=== PATIENT | female | born 2000 | race Caucasian/White ===

== ENCOUNTER 2023-06-07 17:16 | Emergency (ER) | payer OTHER, SELFPAY ==
[2023-06-07 17:18] VITALS: BP 137/71; PULSE 90; RESP 18; TEMP 36.3; O2SAT 98; BMI 26.4
--- NOTE | 2023-06-07 17:38 | EX.ED.DYSGE1 ---
HPI History of Present Illness Chief Complaint: Ear Problem Informant: patient Narrative Narrative: Patient presents with possible foreign body in her right ear. She states when she woke this morning one of her earrings that had a ball on it had come out of her ear. She cannot find the ball and is concerned it may have gone into her ear canal. She tried looking with her phone but no one was really able to get a good look. She does report some soreness to her ear, but states some of her piercings are recent. PFSH PFSH no medical history Allergy/AdvReac Type Severity Reaction Status Date / Time bee venom protein (honey bee) Allergy Anaphylaxis Verified 06/07/23 17:18 gluten Allergy Vomiting Verified 06/07/23 17:18 Social History Smoking Status: Never smoker ROS ROS ED Constitutional Constitutional ED: Denies chills or fever(s) ENT ENT ED: Reports ear pain right; Denies sore throat Cardiovascular Cardiovascular: Denies chest pain Respiratory/Chest Respiratory/Chest: Denies cough Gastrointestinal Gastrointestinal: Denies abdominal pain, nausea or vomiting Integumentary Denies Abrasions or rash Neurologic Neurologic: Denies headache(s) Psychiatric Psychiatric: Denies anxiety or depression Allergic/Immunologic Allergic/Immunologic ED: Denies lip swelling or urticaria EXAM Physical Exam Const Vital Signs: 06/07/23 17:18 Temperature 97.3 F L Temperature Source Temporal Pulse Rate 90 Respiratory Rate 18 Blood Pressure 137/71 H Blood Pressure Mean 93 Pulse Ox 98 Oxygen Delivery Method Room Air Positive well nourished and well developed General Appearance ED: well developed HEENT Reports moist mucous membranes HEENT Narrative: Right ear: Scarring is noted to the tympanic membrane. No erythema or edema noted to the external canal. No foreign body appreciated. Eyes EOMs intact bilaterally Neck no lymphadenopathy Chest Wall inspection of chest normal and palpation of chest normal Resp normal respiratory effort and clear to auscultation bilaterally Cardio regular rate and regular rhythm Extremity normal to inspection Neuro oriented x3 and no sensory deficits noted Motor Exam: strength 5/5 throughout Psych mental status grossly normal Skin no rashes or lesions noted MDM MDM MDM Narrative Medical decision making narrative: No evidence of foreign body noted at this time. Patient reassured with this and will continue supportive care. Discharge Plan Triage Chief Complaint: Ear Problem ED Provider: Vanda Garza Dx/Rx/DC Orders Clinical Impression: Otalgia Instructions: ED Earache Without Infection (Adult) Disposition Disposition: Home, Self Care
== END 2023-06-07 18:08 | disposition home or self-care (01) ==
PROVIDERS: Emergency Provider Emergency Medicine; Visit Provider Emergency Medicine
DX: H92.01 Otalgia, right ear (principal)
CPT/HCPCS: 99282

== ENCOUNTER → 2024-10-15 | Outpatient (CLI) | payer OTHER, SELFPAY ==
[2024-10-20 14:55] LABS: HPV Reflexed? NOT INDICATED
== END | disposition home or self-care (01) ==
LOC: LABSPEC 16:45
PROVIDERS: Referring Provider Obstetrics & Gynecology; Visit Provider Obstetrics & Gynecology
DX: Z12.4 Encounter for screening for malignant neoplasm of cervix (principal)
CPT/HCPCS: 88175; G0145

== ENCOUNTER → 2024-11-25 | Outpatient (CLI) | payer OTHER, SELFPAY ==
[2024-11-25 12:30] LABS: Absolute Neutrophil Count 3.4 X10^3/uL (2.0-7.7); Basophil# 0.05 X10^3/uL; Basophil% 0.9 % (0-1); Eosinophil# 0.05 X10^3/uL; Eosinophils% 0.9 % (0-5); Hematocrit 41.7 % (37-47); Hemoglobin 13.7 g/dL (12.0-15.0); Lymphocyte % 32.7 % (19-41); Mean Corp Hgb Conc 32.9 g/dL (32-36); Mean Corpuscular Hgb 30.4 pg (27.0-32.0); Mean Corpuscular Volume 92.5 fL (81-99); Mean Platelet Vol. 12.2 fl (6.2-12.0); Monocyte# 0.39 X10^3/uL; Monocyte% 6.7 % (0-10); NRBC Flagged by Analyzer 0 % (0-5); Neutrophil % 58.5 % (47-70); Platelet Count 203 K/mm3 (150-450); Red Blood Count 4.51 M/mm3 (4.2-5.4); White Blood Count 5.8 K/mm3 (4.4-11.0)
[2024-11-25 12:45] LABS: ALB/GLOB Ratio 1.1 RATIO (0.9-2.4); AST(SGOT) 10 U/L (15-37); Alanine Aminotransfer ALT/SGPT 18 U/L (13-56); Albumin, Serum 4.3 g/dL (3.2-5.0); Alkaline Phosphatase 81 U/L (45-117); Anion Gap 6 (5-15); BUN 24 mg/dL (7-18); BUN/Creat Ratio 27.5 RATIO (10-20); Calcium,Total 9.6 mg/dL (8.5-10.1); Chloride 109 mmol/L (98-107); Creatinine, Serum 0.87 mg/dL (0.55-1.02); EST Glomerular Filtration Rate 85 mL/min (>60); Est Glom Filt Rate - Afr Amer 103 mL/min (>60); Glucose 93 mg/dL (74-106); Protein, Total 8.3 g/dL (6.4-8.2); Sodium Level 140 mmol/L (136-145)
[2024-11-25 14:34] LABS: Vitamin D,25 Hydroxy 24.5 ng/mL
[2024-11-30 12:08] LABS: Anti-Centromere B Ab <0.2 AI (0.0-0.9); Anti-Chromatin <0.2 AI (0.0-0.9); Anti-Jo <0.2 AI (0.0-0.9); Anti-Nuclear Antibody Test Negative (.); Anti-Scleroderma-70 AB <0.2 AI (0.0-0.9); Anti-dsDNA Ab <1 IU/mL (0-9); RNP Ab <0.2 AI (0.0-0.9); SJOGREN'S Anti-SS-A test < 0.2 AI (0.0-0.9); SJOGREN'S Anti-SS-B test < 0.2 AI (0.0-0.9); Smith Ab <0.2 AI (0.0-0.9)
== END | disposition home or self-care (01) ==
LOC: BWCLAB 09:13
PROVIDERS: Referring Provider Internal Medicine; Visit Provider Internal Medicine
DX: Z00.00 Encounter for general adult medical examination without abnormal findings (principal); F90.0 Attention-deficit hyperactivity disorder, predominantly inattentive type; Z82.69 Family history of other diseases of the musculoskeletal system and connective tissue
CPT/HCPCS: 36415; 80053; 82306; 84443; 85025; 86038; 86225; 86235

== ENCOUNTER 2025-02-15 20:18 | Emergency (ER) | payer OTHER, SELFPAY ==
[2025-02-15 20:19] VITALS: BP 132/81; PULSE 78; RESP 18; TEMP 36.8; O2SAT 99; BMI 23.9
--- NOTE | 2025-02-15 20:43 | EDS_ITS ---
HPI HPI - Female History of Present Illness Chief Complaint: Vag Bleeding Detail of Chief Complaint: Bleeding from recently drained Bartholin cyst Narrative Narrative: 24-year-old female history of ADHD. Had a Bartholin cyst initially treated with antibiotics for about a week. Yesterday Dr. Blanka Christian your [employer] did incision and drainage. Patient was doing well. Today she had significant bleeding. Now it swollen up and is tender. She denies any fever or chills. No discharge of the bleeding. Prior similar symptoms: No Recent Illness/Hospitalization: No PFSH PFSH Medical History Cellulitis of left hand Cat bite of left hand Vision problems Pneumonia Migraines Hives Bone fracture Allergies ADHD (attention deficit hyperactivity disorder), inattentive type History of hay fever Home Medications ?Medication ?Instructions ?Recorded ?Last Taken ?Type PNV no.151-iron 27 mg-folic 800 1 cap PO DAILY #90 cap s 10/24/24 Unknown Rx mcg-omega3 260 [id number]-fish capsule ( Multi-DHA (with vitamin K)) biotin 5 mg capsule 5 mg PO QDAY 12/29/24 Unknow n History cholecalciferol (vitamin D3) 25 25 mcg PO QDAY 5 Unknown History mcg (1,000 unit) capsule lisdexamfetamine 30 mg capsule 30 mg PO QAM 30 days #3 0 caps 12/29/24 Unknown Rx sertraline 25 mg tablet (Zoloft) 25 mg PO DAILY #30 ta bs 12/29/24 Unknown Rx sulfamethoxazole 800 1 tab PO BID 7 days #14 tabs 02/15/25 Unknown Rx mg-trimethoprim 160 mg tablet (Bactrim DS) Allergy/AdvReac Type Severity Reaction Status Date / Time bee venom protein (honey bee) Allergy Anaphylaxis Verified 02/15/25 20:19 gluten Allergy Vomiting Verified 02/15/25 20:19 venom-wasp Allergy Other Verified 02/15/25 20:19 Family History Grandmother Anemia Asthma Blood clot in vein CVA (cerebral vascular accident) Mother Arthritis Autoimmune disease Aunt Breast cancer Grandfather Myocardial infarction Grandmother Mental disorder schizophrenia Other Cancer Surgical History History of placement of ear tubes Social History adopted: No household members: significant other housing: house number of children: 0 current occupation: [employer] Smoking Status: Never smoker alcohol intake: current alcohol intake frequency: a few times a month substance use type: does not use diet: gluten free what type of physical activity do you participate in: walking and running seatbelt use: always do you feel safe at home: Yes additional social history: Eddie CERVANTES ROS ED ROS Narrative Denies recent illness. Constitutional Constitutional ED: Denies chills or fever(s) Eyes Eyes: Denies blurry vision ENT ENT ED: Denies ear pain Cardiovascular Cardiovascular: Denies chest pain Respiratory/Chest Respiratory/Chest: Denies cough or dyspnea Gastrointestinal Gastrointestinal: Denies abdominal pain Genitourinary Genitourinary ED: Denies dysuria Musculoskeletal Musculoskeletal: Denies arthralgias Integumentary Denies abscess Neurologic Neurologic: Denies headache(s) Psychiatric Psychiatric: Denies anxiety or depression Endocrine Endocrinology: Denies heat intolerance Hematologic/Lymphatic Hematologic/Lymphatic: Denies easy bleeding, easy bruising or lymphadenopathy Allergic/Immunologic Allergic/Immunologic ED: Denies mouth swelling, tongue swelling or urticaria EXAM Physical Exam Narrative Exam Narrative: 21-year-old female vital signs stable afebrile. Initial blood pressure 132/81. Pulse rate 78. She does not look septic or toxic or in distress. I think her mom is present with her in the room. H EENT exam pupils round react light. Mytrex membranes. Lungs clear. Heart regular rate and rhythm rate about 80 no murmur. Chest wall ribs nontender. Abdomen soft nontender. Moving all 4 extremities. Nontender no edema. Normal range of motion. Normal strength. Back nontender. Neurologically she is awake alert. Female nurse present in the room I examined her pelvic area. She has a labia majora hematoma. From where the Bartholin cyst was drained. It is tender and swollen. Currently not actively bleeding but there is dried blood at the site. Const Vital Signs: 02/15/25 20:19 02/15/25 22:00 Temperature 98.2 F Temperature Source Oral Pulse Rate 78 81 Respiratory Rate 18 18 Blood Pressure 132/81 H 134/94 H Blood Pressure Mean 98 107 Pulse Ox 99 95 Oxygen Delivery Method Room Air Room Air Positive well nourished and well developed; Negative for obese, cachectic, contractures or unkempt General Appearance ED: well developed and NAD; Negative for unkempt, cachectic, contractures or pallor Nutritional Appearance: Negative for cachectic or obese HEENT Reports moist mucous membranes Eyes PERRL and EOMs intact bilaterally Neck no lymphadenopathy, supple and no JVD Chest Wall inspection of chest normal and palpation of chest normal Resp normal respiratory effort and clear to auscultation bilaterally Auscultation: Negative for rales, rhonchi, wheezes or diminished lung sounds Cardio regular rate, regular rhythm, S1 normal heart sound, no murmurs and no JVD Rate: Negative for bradycardia or tachycardic Rhythm: Negative for abnormal rhythm GI normal to inspection, nondistended, normoactive bowel sounds, soft to palpation, non-tender, non-distended and no masses Auscultation: normoactive bowel sounds Palpation: Negative for tender or guarding Back/Spine no CVA tenderness General Back: Negative for CVA tenderness Cervical Spine: Negative for cervical spine tenderness Thoracic Spine / Upper Back: Negative for thoracic spinal tenderness Lumbar Spine / Lower Back: Negative for lumbar spinal tenderness Extremity normal to inspection and full ROM Neuro oriented x3 and CN's II-XII intact bilaterally Sensorium / Orientation: alert, oriented to person, oriented to place and oriented to time Motor Exam: strength 5/5 throughout Psych mental status grossly normal Appearance: Negative for unkempt Mood & Affect: Negative for depressed, anxious or tearful Skin no rashes or lesions noted and no wounds General Skin Exam: Negative for jaundice or pallor Rashes: No rashes noted Image ED - Body Diagram Woman: 2 1. Left labia majora status post drainage of a Bartholin cyst. Is developed a hematoma. MDM MDM MDM Narrative Medical decision making narrative: Healthy 24-year-old female. Status post left labia majora incision and drainage of a Bartholin cyst by her [employer]. Is developed a hematoma. I spoke to her [employer] Dr. Blanka Christian. She will be in evaluate the patient. She wanted screening labs. Patient currently did not waiting for pain. Dr. Gurmeet Santos in the emergency department evaluate the patient at this time. Patient doing well at 10:[address] Guthrie is a did silver nitrate sticks to cauterize any bleeding. Give the patient ongoing instructions. She wanted the patient on Bactrim 1 pill twice a day for a week. I wrote the prescription for the patient and sent it to her pharmacy. Patient is comfortable being discharged to home. She will follow-up with Dr. Mccarthy as needed. History & Record Review Discussion w/independent historian: Patient and Family Lab Data Attestation: I reviewed the patient's lab results. Lab results narrative: CBC unremarkable white count of 10.1. H&H 12.4 and 36.4. Platelets 198 BMP shows a sodium 139. Gap 11. Normal BUN and creatinine. Glucose 134. Labs: Laboratory Results - last 24 hr 02/15/25 20:48 WBC 10.1 RBC 4.05 L Hgb 12.4 Hct 36.4 L MCV 89.9 MCH 30.6 MCHC 34.1 RDW Std Deviation 44.6 H RDW Coeff of Desmond 13.4 Plt Count 198 MPV 11.3 Immature Gran % (Auto) 0.200 Neut % (Auto) 75.8 H Lymph % (Auto) 17.2 L [place] % (Auto) 5.9 Eos % (Auto) 0.6 Baso % (Auto) 0.3 Absolute Neuts (auto) 7.7 Absolute Lymphs (auto) 1.74 Nucleated RBC % 0 Sodium 139 Potassium 3.9 Chloride 106 Carbon Dioxide 22.6 Anion Gap 11 BUN 18 Creatinine 0.89 Estim Creat Clear Calc 81.32 Est GFR (MDRD) Non-Af 94 BUN/Creatinine Ratio 20.8 H Glucose 134 H Calcium 9.4 Discharge Plan Triage Chief Complaint: Vag Bleeding ED Provider: Jason Humphrey Dx/Rx/DC Orders Clinical Impression: Bartholin cyst, Hematoma of labia majora Instructions: ED Bartholin's Cyst (No Infection), ED Hematoma Prescriptions: New sulfamethoxazole-trimethoprim [Bactrim DS] 800-160 mg tablet 1 tab PO BID 7 Days Qty: 14 0RF No Action biotin 5 mg capsule 5 mg PO QDAY cholecalciferol (vitamin D3) 25 mcg (1,000 unit) capsule 25 mcg PO QDAY sertraline [Zoloft] 25 mg tablet 25 mg PO DAILY Qty: 30 1RF lisdexamfetamine 30 mg capsule 30 mg PO QAM 30 Days Qty: 30 0RF Multi-DHA(with vit K) 27 mg iron-800 mcg-260 mg capsule 1 cap PO DAILY Qty: 90 4RF Primary Care Provider: Coty Hussein Referrals: Coty Hussein MD [Primary Care Provider] - Blanka Christian MD [Med Staff - Active Staff] - 3-5 Days Activity Restrictions/Additional Instructions: Home-going instructions per Dr. Christian Motrin and Tylenol for pain. She wanted you on the antibiotic Bactrim 1 pill twice a day for a week to prevent any infection. Follow-up with her as instructed and needed. Print Language: Uzbek Disposition Disposition: Home, Self Care
[2025-02-15 20:59] LABS: Absolute Lymphocyte Count 1.74 X10^3/uL (0.83-4.51); Absolute Neutrophil Count 7.7 X10^3/uL (2.0-7.7); Basophil# 0.03 X10^3/uL; Basophil% 0.3 % (0-1); Eosinophil# 0.06 X10^3/uL; Eosinophils% 0.6 % (0-5); Hematocrit 36.4 % (37-47); Hemoglobin 12.4 g/dL (12.0-15.0); Lymphocyte # 1.74 X10^3/ul (0.83-4.51); Lymphocyte % 17.2 % (19-41); Mean Corp Hgb Conc 34.1 g/dL (32-36); Mean Corpuscular Hgb 30.6 pg (27.0-32.0); Mean Corpuscular Volume 89.9 fL (81-99); Mean Platelet Vol. 11.3 fl (6.2-12.0); Monocyte% 5.9 % (0-10); NRBC Flagged by Analyzer 0 % (0-5); Neutrophil # 7.66 X10^3/uL (2.7-7.7); Neutrophil % 75.8 % (47-70); Platelet Count 198 K/mm3 (150-450); RBC Distribution Width CV 13.4 % (11.6-14.6); RBC Distribution Width SD 44.6 fl (35.1-43.9); Red Blood Count 4.05 M/mm3 (4.2-5.4); White Blood Count 10.1 K/mm3 (4.4-11.0)
[2025-02-15] MEDS: Lidocaine 1% (20 ml mdv) 20 ML Vial 10 ML INFILT (20:59)
[2025-02-15 21:53] LABS: Anion Gap 11 (5-15); BUN 18 mg/dL (4-19); BUN/Creat Ratio 20.8 RATIO (10-20); Calcium,Total 9.4 mg/dL (7.6-11.0); Carbon Dioxide 22.6 mmol/L (21.0-32.0); Chloride 106 mmol/L (98-108); Creatinine, Serum 0.89 mg/dL (0.70-1.20); EST Glomerular Filtration Rate 94 (>60); Estimated Creatinine Clearance 81.32 ml/min (50-250); Glucose 134 mg/dL (70-99); Potassium 3.9 mmol/L (3.3-5.1); Sodium Level 139 mmol/L (133-145)
[2025-02-15 22:00] VITALS: BP 134/94; PULSE 81; RESP 18; O2SAT 95
[2025-02-15] MEDS: FERRIC SUBSULFATE 8 GM SOLN TOPICAL (22:07)
[2025-02-15] MEDS: Silver Nitrate (BKC) 2 EACH TOPICAL (22:07)
[2025-02-15 22:49] VITALS: BP 129/86; PULSE 71; RESP 16; TEMP 36.8; O2SAT 97
== END 2025-02-15 22:55 | disposition home or self-care (01) ==
PROVIDERS: Emergency Provider Emergency Medicine; PCP Internal Medicine; Visit Provider Emergency Medicine
DX: L76.32 Postprocedural hematoma of skin and subcutaneous tissue following other procedure (principal); N75.0 Cyst of Bartholin's gland; Y83.8 Other surgical procedures as the cause of abnormal reaction of the patient, or of later complication, without mention of misadventure at the time of the procedure; Z79.899 Other long term (current) drug therapy
CPT/HCPCS: 80048; 85025; 99283; A4216

== ENCOUNTER → 2025-06-28 | Outpatient (CLI) | payer OTHER, SELFPAY | END | disposition home or self-care (01) | PROVIDERS: PCP Internal Medicine; Visit Provider Advanced Practice Midwife | DX: Z13.29 Encounter for screening for other suspected endocrine disorder (principal) | CPT/HCPCS: 36415; 84439; 84443 ==

== ENCOUNTER → 2025-09-13 | Outpatient (CLI) | payer OTHER, SELFPAY ==
--- NOTE | 2025-09-13 16:59 | US_ITS ---
PROCEDURE: EXT NON VASC LIMITED/SOFT TISS 09/13/2025 REASON FOR EXAM: LEFT WRIST TECHNIQUE: Procedure Code: [id number] Modality: US Procedure: EXT NON VASC LIMITED/SOFT TISS COMPARISON: None FINDINGS: Left wrist dorsum cystic area with septations measuring 1 x 1.5 x 0.7 cm without vascularity is noted. . US/Ext Non Vasc Limited/Soft Tiss IMPRESSION: Area of concern could represent ganglion cyst. Follow-up is advised Reading [facility]
== END | disposition home or self-care (01) ==
LOC: US 16:58
PROVIDERS: PCP Internal Medicine; Referring Provider Orthopaedic Surgery Sports Medicine; Visit Provider Orthopaedic Surgery Sports Medicine
DX: M67.432 Ganglion, left wrist (principal)
CPT/HCPCS: 76882

== ENCOUNTER → 2025-09-15 | Outpatient (CLI) | payer OTHER, SELFPAY ==
[2025-09-15 11:39] LABS: hCG Titer Quant., Serum < 1 mIU/mL (<9 non-preg)
[2025-09-17 20:08] LABS: Anti-Cardiolipin Ab, IgG, Qn < 9 GPL U/mL (0-14); Anti-Cardiolipin Ab, IgM, Qn < 9 MPL U/mL (0-12); Beta-2-Glycoprotein I IgA <9 (0-25); Beta-2-Glycoprotein I IgG <9 (0-20); Beta-2-Glycoprotein I IgM <9 (0-32); Dilute Russell Viper Venom 32.4 sec (0.0-47.0); Interpretation Comment: (.); PTT-LA 39.2 sec (0.0-43.5)
== END | disposition home or self-care (01) ==
LOC: LAB 09:59
PROVIDERS: PCP Internal Medicine; Referring Provider Obstetrics & Gynecology; Visit Provider Obstetrics & Gynecology
DX: O03.9 Complete or unspecified spontaneous abortion without complication (principal); N96 Recurrent pregnancy loss; Z3A.00 Weeks of gestation of pregnancy not specified
CPT/HCPCS: 36415; 83036; 84443; 84702; 86146; 86147